=== PATIENT | female | born 1975 ===

== ENCOUNTER 2021-01-27 07:15 | Inpatient (IN) | payer OTHER ==
[~2021-01-27] VITALS: Ht 167.6 cm; Wt 61.7 kg
[2021-01-27] MEDS ORDERED: TAPAZOLE5 M1 PO (09:21)
[2021-01-27] MEDS ORDERED: TOPROL XL25 M1 PO (09:22)
[2021-01-29] MEDS ORDERED: FAMOTIDINE20 MG (09:00)
[2021-01-29] MEDS ORDERED: CHLORDIAZEPOXI1 EACH (09:00)
[2021-01-29] MEDS ORDERED: CLOTRIMAZOLE-BE15 G1 (09:01)
[2021-01-29] MEDS ORDERED: CETIRIZINE HCL10 MG (09:01)
[2021-02-01] MEDS ORDERED: SIMETHICONE125 M1 PO (10:18)
[2021-02-01] MEDS ORDERED: ACETAMINOPHEN-1 EAC2 PO (10:18)
== END 2021-02-01 10:42 | disposition home or self-care (01) | DRG 743 ==
LOC: OB/GYN 01-29 06:00 → O/R 01-29 06:00 → OB/GYN 01-29 07:15
PROVIDERS: ADMIT Obstetrics & Gynecology; ATTEND Obstetrics & Gynecology
PROC: 0TJB8ZZ Inspection of Bladder, Via Natural or Artificial Opening Endoscopic (ICD-10-PCS; 2021-01-29)
PROC: 0UT90ZZ Resection of Uterus, Open Approach (ICD-10-PCS; principal; 2021-01-29 08:45)
DX: D25.1 Intramural leiomyoma of uterus (principal); N81.11 Cystocele, midline; N72 Inflammatory disease of cervix uteri; N80.0 Endometriosis of uterus; D25.0 Submucous leiomyoma of uterus; D25.2 Subserosal leiomyoma of uterus; N92.0 Excessive and frequent menstruation with regular cycle; N94.5 Secondary dysmenorrhea